=== PATIENT | female | born 1995 | race Hispanic/Latino ===

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

== ENCOUNTER 2017-01-19 00:50 | Emergency (ER) | payer OTHER ==
[~2017-01-19] VITALS: Ht 162.6 cm; Wt 54.0 kg
[2017-01-19 00:55] VITALS: BP 141/99
--- NOTE | 2017-01-19 01:49 | REP ---
Clinical: Trauma. Technique: Portable AP view of the left shoulder. Findings: Acromioclavicular and glenohumeral joints appear intact and normal. Surrounding soft tissues are unremarkable. No acute fracture or dislocation identified by current examination. Impression: Normal portable AP view of the left shoulder. Signed by Sage Dupont MD 01/19/2017 01:41 A
== END 2017-01-19 01:51 | disposition home or self-care (01) ==
LOC: EDBD 00:50 → M ED 01:48
DX: M25.512 Pain in left shoulder (principal); V47.5XXA Car driver injured in collision with fixed or stationary object in traffic accident, initial encounter; Y92.410 Unspecified street and highway as the place of occurrence of the external cause; Y93.9 Activity, unspecified; Y99.8 Other external cause status; F17.200 Nicotine dependence, unspecified, uncomplicated

== ENCOUNTER 2017-01-29 22:46 | Emergency (ER) | payer OTHER ==
[~2017-01-29] VITALS: Ht 154.9 cm; Wt 53.0 kg
[2017-01-30] MEDS ORDERED: ONDANSETRON 4MG/2ML VIAL (J2405) IV ONE (03:30)
[2017-01-30] MEDS ORDERED: NS 1,000 ML IV ONE (03:30)
[2017-01-30 03:47] LABS: CONTROL LINE HCG INT CTR LINE PRESENT
[2017-01-30 03:52] LABS: ALBUMIN/GLOBULIN RATIO 1.05 (1.00-1.93); ALKALINE PHOSPHATASE 90 U/L (45-117); ALT/SGPT 16 U/L (12-78); ANION GAP 9 MEQ/L (8-16); AST/SGOT 7 U/L (15-37); BILIRUBIN,DIRECT < 0.1 MG/DL (0.0-0.2); BILIRUBIN,TOTAL 0.5 MG/DL (0.2-1.0); BLOOD UREA NITROGEN 11 MG/DL (7-18); CALCIUM LEVEL 8.6 MG/DL (8.5-10.1); CARBON DIOXIDE LEVEL 26 MEQ/L (21-32); CHLORIDE LEVEL 100 MEQ/L (98-107); GLUCOSE, FASTING 89 MG/DL (70-105); POTASSIUM SERUM 3.2 MEQ/L (3.5-5.1); SODIUM LEVEL 135 MEQ/L (136-145); TOTAL PROTEIN 7.8 GM/DL (6.4-8.2)
[2017-01-30 04:17] LABS: BASO % 0.4 % (0.0-1.0); EOS % 0.5 % (0.0-3.0); LARGE UNSTAINED CELL # 0.1 K/mm3 (0.0-0.4); LARGE UNSTAINED CELL % 0.9 % (0.0-4.0); LYMPH # 1.7 K/mm3 (1.5-6.5); LYMPH % 14.9 % (24.0-44.0); MEAN CORPUSCULAR HEMOGLOBIN 31.8 pg (27.0-33.0); MEAN CORPUSCULAR HGB CONC 34.5 g/dl (32.0-36.5); MEAN CORPUSCULAR VOLUME 92.2 fl (80.0-96.0); MONO # 0.5 K/mm3 (0.0-0.8); NEUTROPHILS # 8.3 K/mm3 (1.8-7.7); NEUTROPHILS % 78.2 % (36.0-66.0); PLATELET COUNT, AUTOMATED 295 k/mm3 (150-450); RED CELL DISTRIBUTION WIDTH 12.2 % (11.5-14.5); WHITE BLOOD COUNT 10.6 K/mm3 (4.0-10.0)
[2017-01-30] MEDS ORDERED: REGL10TA6 PO (05:21)
[2017-01-30 05:42] VITALS: BP 120/73
== END 2017-01-30 05:44 | disposition home or self-care (01) ==
LOC: M ED 22:46
DX: O21.0 Mild hyperemesis gravidarum (principal); Z3A.00 Weeks of gestation of pregnancy not specified
CPT/HCPCS: 80048; 80076; 83690; 84703; 85025; 96374; 99283; J2405

== ENCOUNTER 2017-04-30 18:10 | Emergency (ER) | payer OTHER ==
[~2017-04-30] VITALS: Ht 154.9 cm; Wt 56.8 kg
[~2017-04-30 18:10] MED LIST: REGL10TA6 PO
[2017-04-30] MEDS ORDERED: TYLE325T5 PO (18:21)
[2017-04-30] MEDS ORDERED: NS 1,000 ML IV ONE (18:45)
[2017-04-30] MEDS ORDERED: ONDANSETRON 4MG/2ML VIAL (J2405) IV ONE (18:45)
[2017-04-30 19:34] LABS: MEAN CORPUSCULAR HEMOGLOBIN 32.3 pg (27.0-33.0); MEAN CORPUSCULAR HGB CONC 34.3 g/dl (32.0-36.5); MEAN CORPUSCULAR VOLUME 94.3 fl (80.0-96.0); RED CELL DISTRIBUTION WIDTH 12.4 % (11.5-14.5); WHITE BLOOD COUNT 11.9 10^3/uL (4.0-10.0)
[2017-04-30] MEDS ORDERED: ACETAMINOPHEN TAB 650MG DOSE (2X325MG) PO ONE (21:15)
--- NOTE | 2017-04-30 21:20 | REPUSA ---
CLINICAL HISTORY: Recent Ab. Continued bleeding. TECHNIQUE: Ultrasound of the pelvis was performed transabdominally. ULTRASOUND PELVIS : Uterus: 9.7 x 6.0 x 7.9 cm. Normal without masses. Endometrial stripe: 3 cm thickness within normal appearance, without retained products of conception. Right ovary: 3.4 x 1.7 x 1.9 cm. Normal size. No masses. Normal vascular flow. Left ovary: 3.6 x 1.9 x 1.6 cm. Normal size. No masses. Normal vascular flow. Pelvic fluid: None. IMPRESSION: uterus with endometrial canal containing blood products but without vasculariz ed contents to suggest retained products of conception.
[2017-04-30] MEDS ORDERED: ZOFR4TAB3 PO (21:29)
[2017-04-30 22:05] VITALS: BP 104/50
== END 2017-04-30 22:07 | disposition home or self-care (01) ==
LOC: M ED 18:10
DX: K52.9 Noninfective gastroenteritis and colitis, unspecified (principal); Z98.890 Other specified postprocedural states
CPT/HCPCS: 76856; 85027; 87040; 96361; 96374; 99283; J2405